=== PATIENT | female | born 1965 | race Caucasian/White ===

== ENCOUNTER 2020-01-12 10:54 | Inpatient (IN) | payer OTHER ==
[~2020-01-12] VITALS: Ht 165.1 cm; Wt 80.9 kg
[~2020-01-12 10:54] MED LIST: CLIN-97 PO
[2020-01-12 11:42] LABS: BASOPHILS % (AUTO) 0.4 % (0-1); EOSINOPHILS % (AUTO) 0.3 % (0-6); HEMATOCRIT 44.3 % (35.0-45.0); HEMOGLOBIN 14.3 g/dl (12.0-16.0); LYMPHOCYTES # (AUTO) 2.1 X10'3 (1.1-4.8); LYMPHOCYTES % (AUTO) 27.8 % (21-51); MEAN CORPUSCULAR HEMOGLOBIN 29.5 PG (27.0-31.0); MEAN CORPUSCULAR HGB CONC 32.3 g/dL (33.0-36.5); MEAN CORPUSCULAR VOLUME 91.3 FL (78-98); MEAN PLATELET VOLUME 10.3 FL (7.4-10.4); MONOCYTES # (AUTO) 0.7 X10'3 (0-0.9); MONOCYTES % (AUTO) 9.3 % (2-12); NEUTROPHILS # (AUTO) 4.8 X10'3 (1.8-7.7); NEUTROPHILS % (AUTO) 62.2 % (42-75); PLATELET COUNT 214 X10'3 (140-440); RED BLOOD COUNT 4.85 X10'6 (4.20-5.60); RED CELL DISTRIBUTION WIDTH 15.5 % (11.5-14.5); WHITE BLOOD COUNT 7.7 X10'3 (4.5-11.0)
[2020-01-12 11:54] LABS: ALANINE AMINOTRANSFERASE 56 U/L (12-78); ALBUMIN 3.4 G/DL (3.4-5.0); ALBUMIN/GLOBULIN RATIO 1.1 (1.1-1.5); ALKALINE PHOSPHATASE 108 IU/L (46-116); ANION GAP 9 (8-16); ASPARTATE AMINO TRANSFERASE 30 U/L (10-37); BILIRUBIN,TOTAL 2.7 MG/DL (0.1-1.0); BLOOD UREA NITROGEN 13 MG/DL (7-18); CALCIUM 8.6 MG/DL (8.5-10.1); CHLORIDE 105 MMOL/L (99-107); CREATININE 0.81 MG/DL (0.40-0.90); GLUCOSE 116 MG/DL (70-104); SODIUM 140 MMOL/L (135-145); TOTAL CARBON DIOXIDE 26.5 MMOL/L (24-32); TOTAL PROTEIN 6.5 G/DL (6.4-8.2); eGFR 73 ML/MIN
[2020-01-12] MEDS ORDERED: furosemide 10 MG/1 ML 10ml inj IV ONE (12:25)
[2020-01-12 12:30] LABS: D-DIMER 1.04 MG/L FEU (0-0.50); PARTIAL THROMBOPLASTIN TIME 30 SECONDS (22-32)
[2020-01-12] MEDS ORDERED: iohexol 350MG/ML 100ml bottle IV ONE (12:48)
[2020-01-12] MEDS ORDERED: heparin 10,000 units/1 ML INJ IV ONE ×2 (13:35→13:40)
[2020-01-12] MEDS ORDERED: heparin 10,000 units/1 ML INJ IV PRN (13:35)
[2020-01-12] MEDS ORDERED: mag hydrox/Alum hydrox/simeth 30ml oral suspension PO PRN (13:50)
[2020-01-12] MEDS ORDERED: ondansetron/PF 4mg/2ml inj IV PRN (13:50)
[2020-01-12] MEDS ORDERED: acetaminophen 325mg tablet PO PRN (13:50)
[2020-01-12] MEDS ORDERED: magnesium hydroxide 30ml (MOM) UD suspension PO PRN (13:50)
[2020-01-12] MEDS: heparin 25,000 UNIT/250ml bag 250 ML IV SCH (13:55)
[2020-01-12] MEDS ORDERED: LORazepam 2 mg/ml vial IV ONE (14:00)
[2020-01-12] MEDS ORDERED: NO HOME MEDS (14:09)
--- NOTE | 2020-01-12 14:22 | NUR ---
Patient in ED. I have received report from Alejandro DESIR and had the opportunity to ask questions and assume patient care.
[2020-01-12 15:00] VITALS: BP 133/92
[2020-01-12 18:00] VITALS: BP 152/89
--- NOTE | 2020-01-12 18:20 | NUR ---
Problems reprioritized. Patient report given, questions answered & plan of care reviewed with Luisa DESIR.
[2020-01-12] MEDS: furosemide 40mg/4ml inj IV SCH (21:45)
[2020-01-12 22:00] VITALS: BP 118/62
--- NOTE | 2020-01-13 00:30 | NUR ---
The patient's DVT PTT at [address] Ch regarding the critical PTT value. He acknowledged and ordered to follow the protocol. The Heparin drip will be on hold for 120 minuets starting from 2300 and restart at 0100 with a heparin drip change from 1500 units/ hr to 1200 units/kg/hr. Will redraw the PTT at 0300 and adjust the heparin drip according the DVD PTT result at 0300. Charge Nurse-Mark is aware of the results.
[2020-01-13] MEDS: heparin 25,000 UNIT/250ml bag 250 ML IV SCH ×2 (01:01→23:53)
[2020-01-13 02:00] VITALS: BP 125/71
[2020-01-13 03:28] LABS: BASOPHILS % (AUTO) 0.5 % (0-1); EOSINOPHILS % (AUTO) 0.4 % (0-6); HEMATOCRIT 44.4 % (35.0-45.0); HEMOGLOBIN 14.8 g/dl (12.0-16.0); LYMPHOCYTES # (AUTO) 2.5 X10'3 (1.1-4.8); MEAN CORPUSCULAR HEMOGLOBIN 30.1 PG (27.0-31.0); MEAN CORPUSCULAR HGB CONC 33.4 g/dL (33.0-36.5); MEAN CORPUSCULAR VOLUME 90.1 FL (78-98); MEAN PLATELET VOLUME 10.1 FL (7.4-10.4); MONOCYTES # (AUTO) 0.8 X10'3 (0-0.9); MONOCYTES % (AUTO) 9.4 % (2-12); NEUTROPHILS # (AUTO) 5.3 X10'3 (1.8-7.7); NEUTROPHILS % (AUTO) 60.7 % (42-75); PLATELET COUNT 204 X10'3 (140-440); RED BLOOD COUNT 4.93 X10'6 (4.20-5.60); WHITE BLOOD COUNT 8.7 X10'3 (4.5-11.0)
[2020-01-13 03:30] LABS: ALBUMIN 3.5 G/DL (3.4-5.0); ANION GAP 8 (8-16); BLOOD UREA NITROGEN 12 MG/DL (7-18); BUN/CREATININE RATIO 14.1 (6.6-38.0); CALCIUM 8.7 MG/DL (8.5-10.1); CHLORIDE 102 MMOL/L (99-107); CREATININE 0.85 MG/DL (0.40-0.90); GLUCOSE 120 MG/DL (70-104); POTASSIUM 3.2 MMOL/L (3.5-5.1); SODIUM 139 MMOL/L (135-145); TOTAL CARBON DIOXIDE 29.5 MMOL/L (24-32); eGFR 69 ML/MIN
--- NOTE | 2020-01-13 06:17 | NUR ---
Problems reprioritized. Patient report given to Srinath, questions answered & plan of care reviewed with .
[2020-01-13 07:08] VITALS: BP 150/91
[2020-01-13] MEDS: furosemide 40mg/4ml inj IV SCH ×2 (07:44→20:16)
--- NOTE | 2020-01-13 08:13 | NUR ---
Page Sent PAGER ID: [phone] MESSAGE: PT IN ROOM 3024B KATHY- THINKS SHE IS HAVING A PANIC ATTACK, YESTERDAY THIS HAPPENED AND SHE GOT 0.5 ATIVAN. CAN SHE HAVE IT AGAIN PLEASE? ALSO CAN WE ORDER K REPLACEMENT PROTOCOL? THANK YOU. JOSELUIS DESIR [id number]
[2020-01-13] MEDS ORDERED: potassium CL 10mEq/100ml bag 100 ML IV PRN ×2 (09:30)
[2020-01-13] MEDS ORDERED: potassium Cl 20 mEq SR tablet PO PRN (09:30)
[2020-01-13] MEDS: LORazepam 0.5 MG tablet PO PRN ×2 (09:43→20:27)
[2020-01-13 11:23] VITALS: BP 108/70
[2020-01-13] MEDS: potassium Cl 20 mEq SR tablet PO PRN ×3 (12:00→20:27)
[2020-01-13 15:00] VITALS: BP 117/78
--- NOTE | 2020-01-13 18:10 | NUR ---
Patient in room PCU 3024. I have received report from KARLEE Morley and had the opportunity to ask questions and assume patient care.
[2020-01-13 19:37] VITALS: BP 118/76
[2020-01-13] MEDS: K and/or MAG REPLACEMENT MC SCH (20:00)
[2020-01-13 20:58] LABS: URINE AMPHETAMINE SCREEN NEGATIVE (Neg); URINE BARBITUATE SCREEN NEGATIVE (Neg); URINE BENZODIAZEPINES SCREEN NEGATIVE (Neg); URINE CANNABINOID SCREEN NEGATIVE (Neg); URINE COCAINE SCREEN NEGATIVE (Neg); URINE METHADONE SCREEN NEGATIVE (Neg); URINE OPIATE SCREEN NEGATIVE (Neg); URINE PHENCYCLIDINE SCREEN NEGATIVE (Neg)
[2020-01-13 23:39] VITALS: BP 119/76
[2020-01-14 01:26] VITALS: BP 110/74
[2020-01-14] MEDS: potassium Cl 20 mEq SR tablet PO PRN (01:27)
[2020-01-14 05:02] LABS: BASOPHILS # (AUTO) 0.1 X10'3 (0-0.2); BASOPHILS % (AUTO) 0.8 % (0-1); EOSINOPHILS # (AUTO) 0.1 X10'3 (0-0.9); HEMATOCRIT 47.7 % (35.0-45.0); HEMOGLOBIN 15.6 g/dl (12.0-16.0); LYMPHOCYTES # (AUTO) 2.8 X10'3 (1.1-4.8); LYMPHOCYTES % (AUTO) 33.6 % (21-51); MEAN CORPUSCULAR HGB CONC 32.7 g/dL (33.0-36.5); MEAN CORPUSCULAR VOLUME 91.8 FL (78-98); MEAN PLATELET VOLUME 9.7 FL (7.4-10.4); MONOCYTES # (AUTO) 0.8 X10'3 (0-0.9); MONOCYTES % (AUTO) 9.8 % (2-12); NEUTROPHILS # (AUTO) 4.5 X10'3 (1.8-7.7); NEUTROPHILS % (AUTO) 54.8 % (42-75); PLATELET COUNT 200 X10'3 (140-440); RED BLOOD COUNT 5.19 X10'6 (4.20-5.60); RED CELL DISTRIBUTION WIDTH 14.7 % (11.5-14.5); WHITE BLOOD COUNT 8.2 X10'3 (4.5-11.0)
[2020-01-14 05:15] LABS: ALBUMIN 3.2 G/DL (3.4-5.0); ANION GAP 7 (8-16); BLOOD UREA NITROGEN 16 MG/DL (7-18); BUN/CREATININE RATIO 17.2 (6.6-38.0); CALCIUM 9.2 MG/DL (8.5-10.1); CHLORIDE 103 MMOL/L (99-107); CREATININE 0.93 MG/DL (0.40-0.90); GLUCOSE 119 MG/DL (70-104); POTASSIUM 4.4 MMOL/L (3.5-5.1); SODIUM 139 MMOL/L (135-145); eGFR 62 ML/MIN
--- NOTE | 2020-01-14 06:26 | NUR ---
Problems reprioritized. Patient report given, questions answered & plan of care reviewed with KARLEE Card.
--- NOTE | 2020-01-14 06:36 | NUR ---
Patient in room PCU 3024. I have received report from Nidia DESIR and had the opportunity to ask questions and assume patient care. Patient awake in bed. No complaints noted. Heparin gtt @ 1200 units/hour.
--- NOTE | 2020-01-14 06:36 | NUR ---
Patient in room PCU 3024. I have received report from Nidia DESIR and had the opportunity to ask questions and assume patient care.
[2020-01-14 07:00] VITALS: BP 120/78
[2020-01-14] MEDS: K and/or MAG REPLACEMENT MC SCH ×2 (08:00→20:00)
[2020-01-14] MEDS: furosemide 40mg/4ml inj IV SCH (08:20)
[2020-01-14] MEDS: heparin 25,000 UNIT/250ml bag 250 ML IV SCH ×2 (08:54→09:07)
[2020-01-14 11:00] VITALS: BP 115/79
[2020-01-14] MEDS: lisinopril 2.5mg tablet PO SCH (13:44)
[2020-01-14] MEDS: apixaban 5mg tablet PO SCH ×2 (13:44→19:27)
[2020-01-14] MEDS: LORazepam 0.5 MG tablet PO PRN (13:54)
[2020-01-14 15:00] VITALS: BP 145/84
[2020-01-14 18:00] VITALS: BP 133/75
--- NOTE | 2020-01-14 18:24 | NUR ---
Problems reprioritized. Patient report given, questions answered & plan of care reviewed with Nidia DESIR. Patient stable at transfer of care.
--- NOTE | 2020-01-14 18:25 | NUR ---
Patient in room PCU 3012. I have received report from KARLEE Pal and had the opportunity to ask questions and assume patient care.
--- NOTE | 2020-01-14 18:25 | NUR ---
Problems reprioritized. Patient report given, questions answered & plan of care reviewed with Nidia DESIR Pt stable at transfer of care.
--- NOTE | 2020-01-14 18:25 | NUR ---
[place] documentation: I have reviewed and agree with all interventions, assessments performed and documented by KARLEE Vega. [place] Medication Administration: For this medication-pass time frame, all medication were reviewed, dispensed, administered and documented per hospital policy by KARLEE Vega.
[2020-01-14] MEDS: furosemide 20 MG/2 ML vial IV SCH (19:26)
[2020-01-15] VITALS (8 sets, daily range): BP systolic 97–141; BP diastolic 62–86
[2020-01-15 05:47] LABS: BASOPHILS # (AUTO) 0.1 X10'3 (0-0.2); BASOPHILS % (AUTO) 0.9 % (0-1); EOSINOPHILS # (AUTO) 0.1 X10'3 (0-0.9); EOSINOPHILS % (AUTO) 1.9 % (0-6); HEMATOCRIT 49.7 % (35.0-45.0); HEMOGLOBIN 16.4 g/dl (12.0-16.0); LYMPHOCYTES # (AUTO) 2.2 X10'3 (1.1-4.8); LYMPHOCYTES % (AUTO) 36.3 % (21-51); MEAN CORPUSCULAR HEMOGLOBIN 30.3 PG (27.0-31.0); MEAN CORPUSCULAR VOLUME 91.8 FL (78-98); MEAN PLATELET VOLUME 9.5 FL (7.4-10.4); MONOCYTES # (AUTO) 0.7 X10'3 (0-0.9); MONOCYTES % (AUTO) 11.2 % (2-12); NEUTROPHILS # (AUTO) 3.1 X10'3 (1.8-7.7); NEUTROPHILS % (AUTO) 49.7 % (42-75); PLATELET COUNT 235 X10'3 (140-440); RED BLOOD COUNT 5.41 X10'6 (4.20-5.60); WHITE BLOOD COUNT 6.2 X10'3 (4.5-11.0)
[2020-01-15 06:01] LABS: ALBUMIN 3.3 G/DL (3.4-5.0); ANION GAP 7 (8-16); BLOOD UREA NITROGEN 21 MG/DL (7-18); BUN/CREATININE RATIO 23.1 (6.6-38.0); CALCIUM 9.8 MG/DL (8.5-10.1); CHLORIDE 103 MMOL/L (99-107); CREATININE 0.91 MG/DL (0.40-0.90); GLUCOSE 112 MG/DL (70-104); POTASSIUM 4.7 MMOL/L (3.5-5.1); SODIUM 142 MMOL/L (135-145); TOTAL CARBON DIOXIDE 32.4 MMOL/L (24-32); eGFR 64 ML/MIN
--- NOTE | 2020-01-15 06:37 | NUR ---
Problems reprioritized. Patient report given, questions answered & plan of care reviewed with KARLEE Jason.
--- NOTE | 2020-01-15 06:43 | NUR ---
Patient in room PCU 3012. I have received report from KARLEE Jacob and had the opportunity to ask questions and assume patient care.
[2020-01-15] MEDS: K and/or MAG REPLACEMENT MC SCH ×2 (08:00→20:00)
[2020-01-15] MEDS: apixaban 5mg tablet PO SCH ×2 (09:48→16:59)
[2020-01-15] MEDS: LORazepam 0.5 MG tablet PO PRN ×2 (09:48→20:49)
[2020-01-15] MEDS: furosemide 20 MG/2 ML vial IV SCH ×2 (09:48→19:43)
[2020-01-15] MEDS: lisinopril 2.5mg tablet PO SCH (09:49)
--- NOTE | 2020-01-15 11:31 | NUR ---
PAGER ID: [phone] MESSAGE: [id number]: Matias FAY pt HR. No specific orders for O2. Pt desated to 84 on 3L NC. Cannula currently has cannula in mouth at 5L sat at 90%. HR 140 currently Kindly advise -Casie [phone] Addendum: 01/15/20 at 1156 by Casie Alas RN VOID, wrong pt
--- NOTE | 2020-01-15 16:36 | NUR ---
PAGER ID: [phone] MESSAGE: [id number]: Richelle Hays Pt requesting for nicotine patch -Casie, [phone]
[2020-01-15] MEDS ORDERED: nicotine 14mg patch - 24hr TD ONE (16:40)
--- NOTE | 2020-01-15 18:09 | NUR ---
Problems reprioritized. Patient report given, questions answered & plan of care reviewed with KARLEE Jacob.
--- NOTE | 2020-01-15 18:10 | NUR ---
Patient in room PCU 3012. I have received report from KARLEE Jason and had the opportunity to ask questions and assume patient care.
[2020-01-15] MEDS: carVEDilol 3.125mg tablet PO SCH (19:43)
--- NOTE | 2020-01-16 05:41 | NUR ---
Sent to [facility] PAGER ID: [phone] MESSAGE: Room 3012A Richelle Ibarra: Had 8 beat run of V tach. Thanks, Nidia [phone]
[2020-01-16 05:56] LABS: BASOPHILS % (AUTO) 0.7 % (0-1); EOSINOPHILS # (AUTO) 0.2 X10'3 (0-0.9); EOSINOPHILS % (AUTO) 3.1 % (0-6); HEMATOCRIT 50.9 % (35.0-45.0); HEMOGLOBIN 16.5 g/dl (12.0-16.0); LYMPHOCYTES % (AUTO) 31.7 % (21-51); MEAN CORPUSCULAR HGB CONC 32.4 g/dL (33.0-36.5); MEAN CORPUSCULAR VOLUME 92.4 FL (78-98); MEAN PLATELET VOLUME 9.5 FL (7.4-10.4); MONOCYTES # (AUTO) 0.7 X10'3 (0-0.9); MONOCYTES % (AUTO) 10.6 % (2-12); NEUTROPHILS # (AUTO) 3.3 X10'3 (1.8-7.7); NEUTROPHILS % (AUTO) 53.9 % (42-75); PLATELET COUNT 262 X10'3 (140-440); WHITE BLOOD COUNT 6.2 X10'3 (4.5-11.0)
[2020-01-16 05:57] LABS: ALBUMIN 3.4 G/DL (3.4-5.0); ANION GAP 5 (8-16); BLOOD UREA NITROGEN 25 MG/DL (7-18); BUN/CREATININE RATIO 28.1 (6.6-38.0); CALCIUM 9.4 MG/DL (8.5-10.1); CHLORIDE 101 MMOL/L (99-107); CREATININE 0.89 MG/DL (0.40-0.90); GLUCOSE 113 MG/DL (70-104); POTASSIUM 4.9 MMOL/L (3.5-5.1); SODIUM 138 MMOL/L (135-145); eGFR 66 ML/MIN
[2020-01-16 06:00] VITALS: BP 111/60
--- NOTE | 2020-01-16 06:00 | NUR ---
Problems reprioritized. Patient report given, questions answered & plan of care reviewed with KARLEE Rueda.
--- NOTE | 2020-01-16 06:10 | NUR ---
Patient in room PCU 3012A. I have received report from Nidia DESIR and had the opportunity to ask questions and assume patient care. Patient laying in bed, awake, alert, no signs of distress, no complaints at this time. Will continue to monitor.
--- NOTE | 2020-01-16 06:59 | NUR ---
Patient in room PCU 3012. I have received report from Marybeth DESIR and had the opportunity to ask questions and assume patient care.
[2020-01-16] MEDS ORDERED: nicotine 14mg patch - 24hr TD SCH (08:00)
[2020-01-16] MEDS: K and/or MAG REPLACEMENT MC SCH (08:00)
[2020-01-16 08:30] VITALS: BP 110/69
[2020-01-16] MEDS: carVEDilol 3.125mg tablet PO SCH (08:30)
[2020-01-16] MEDS: lisinopril 2.5mg tablet PO SCH (08:31)
[2020-01-16] MEDS: apixaban 5mg tablet PO SCH (08:31)
[2020-01-16] MEDS: furosemide 20 MG/2 ML vial IV SCH (08:37)
[2020-01-16] MEDS ORDERED: POTA10TA36 PO (13:04)
[2020-01-16] MEDS ORDERED: FURO-150 PO (13:04)
[2020-01-16] MEDS ORDERED: APIX5TAB3 PO (13:04)
[2020-01-16] MEDS ORDERED: NICO-631 TD (13:04)
[2020-01-16] MEDS ORDERED: COR3.125T PO (13:04)
[2020-01-16] MEDS ORDERED: LISI2.5T2 PO (13:04)
[2020-01-16 15:00] VITALS: BP 97/66
[2020-01-16 15:02] VITALS: BP 97/66
--- NOTE | 2020-01-16 15:45 | NUR ---
Per MD order by Dr. Doss, patient is stable for discharge home. Discharge packet printed and reviewed with patient. All prescriptions sent to pharmacy of choice. Discharge instructions, return precautions, and follow up discussed with patient. All questions answered. Patient to make own follow up appointment, given resources by mental health social worker. IV removed with cannula intact, tele monitor removed. All belongings sent with patient. Patient ambulatory to lobby with RN to go home with family.
--- NOTE | 2020-01-16 18:00 | NUR ---
Student Medication Administration: For this medication-pass time frame, all medication were reviewed, dispensed, administered and documented per hospital policy by Giselle. Student documentation: I have reviewed and agree with all interventions, assessments performed and documented by Giselle NIÑO.
== END 2020-01-16 16:37 | disposition home or self-care (01) | DRG 176 ==
LOC: ER 10:54 → PCU 3S 13:49 → CMPBEDREQ 01-13 19:45 → PCU 3S 01-14 10:30
PROVIDERS: ADMIT Family Medicine; ATTEND Family Medicine
DX: I26.99 Other pulmonary embolism without acute cor pulmonale (principal); Z87.891 Personal history of nicotine dependence; I50.9 Heart failure, unspecified; R00.0 Tachycardia, unspecified; F41.9 Anxiety disorder, unspecified; E87.6 Hypokalemia; I11.0 Hypertensive heart disease with heart failure
CPT/HCPCS: 36415; 71045; 71275; 80048; 80053; 80305; 83880; 84484; 85025; 85379; 85610; 85730; 87081; 93005; 93306; 96374; 96375; 99291; G0378; J1644; J1940; J2060; Q9967